=== PATIENT | female | born 1980 | race Caucasian/White ===

== ENCOUNTER 2022-04-07 08:58 | Outpatient (CLI) | payer BC, SELFPAY ==
[2022-04-07 12:17] LABS: Albumin* 4.8 g/dL (3.3-5.0)
[2022-04-07 12:18] LABS: Chloride* 102 mmol/L (96-114); Potassium* 4.7 mmol/L (3.6-5.1); Sodium* 137 mmol/L (135-149)
[2022-04-07 12:20] LABS: Aspartate Amino Transferase* 22 U/L (12-35); Bilirubin Total* 0.6 mg/dL (0.1-1.5); Carbon Dioxide* 28 mmol/L (20-32); Cholesterol* 223 mg/dL (90-199); Creatinine* 0.8 mg/dL (0.5-1.5); Estimated Glomerular Filt Rate 96 ml/min
[2022-04-07 12:21] LABS: Alanine Aminotransferase* 10 U/L (4-35); Alkaline Phosphatase* 60 U/L (40-150); Blood Urea Nitrogen* 13 mg/dL (5-24); Calcium* 9.4 mg/dL (8.4-10.6); Glucose* 96 mg/dL (60-115); HDL Cholesterol* 90 mg/dL (>=50); LDL Cholesterol Calculated 120 mg/dL (<100); Triglycerides* 64 mg/dL (40-149)
== END 2022-04-07 08:59 | disposition home or self-care (01) ==
PROVIDERS: Visit Provider Obstetrics & Gynecology
DX: Z01.419 Encounter for gynecological examination (general) (routine) without abnormal findings (principal); Z12.4 Encounter for screening for malignant neoplasm of cervix; Z13.6 Encounter for screening for cardiovascular disorders; Z13.29 Encounter for screening for other suspected endocrine disorder
CPT/HCPCS: 80053; 80061; 84443; 87624; 88175

== ENCOUNTER 2023-06-15 14:57 | Outpatient (CLI) | payer BC, SELFPAY ==
--- NOTE | 2023-06-15 15:00 | CRLHL7_ITS ---
For Patients: As a result of the Century Cures Act, medical imaging exams and procedure reports are released immediately into your electronic medical record. You may view this report before your referring provider. If you have questions, please contact your health care provider. BILATERAL SCREENING MAMMOGRAM WITH COMPUTER-AIDED DETECTION TECHNIQUE: CC and MLO views were obtained. These mammographic images have been obtained using full-field digital technique. These mammographic images were interpreted with the benefit of computer-aided detection. COMPARISON FILM: None. This is a baseline study. FINDINGS: The breasts are heterogeneously dense, which may obscure small masses. IMPRESSION: There is no radiographic evidence for malignancy. ASSESSMENT: BI-RADS Category 1: Negative RECOMMENDATION: Routine screening mammogram in 1 year. A lay language report of this examination will be provided to the patient. JULIO CESAR CLEMONS M.D. Diagnostic Radiologist [email or web address] Transcribed: 06/20/2023, 2:[address]/Dictated by: Julio Cesar Clemons MD @ 06/20/2023 9:08:00 AM (Electronically Signed)
== END 2023-06-15 14:58 | disposition home or self-care (01) ==
LOC: MAMMO 14:58
PROVIDERS: Visit Provider Obstetrics & Gynecology
DX: Z12.31 Encounter for screening mammogram for malignant neoplasm of breast (principal); R92.2 Inconclusive mammogram
CPT/HCPCS: 77067

== ENCOUNTER 2024-06-19 09:12 | Outpatient (CLI) | payer BC, SELFPAY ==
--- NOTE | 2024-06-19 09:15 | CRLHL7_ITS ---
For Patients: As a result of the Century Cures Act, medical imaging exams and procedure reports are released immediately into your electronic medical record. You may view this report before your referring provider. If you have questions, please contact your health care provider. BILATERAL SCREENING MAMMOGRAM WITH COMPUTER-AIDED DETECTION AND TOMOSYNTHESIS TECHNIQUE: CC and MLO views were obtained. These mammographic images have been obtained using full-field digital technique. These mammographic images were interpreted with the benefit of computer-aided detection. Breast Tomosynthesis was used in this interpretation. COMPARISON FILM: 06/15/23. FINDINGS: There are scattered areas of fibroglandular density. IMPRESSION: There is no radiographic evidence for malignancy. ASSESSMENT: BI-RADS Category 1: Negative RECOMMENDATION: Routine screening mammogram in 1 year. A lay language report of this examination will be provided to the patient. Julio Cesar Jones M.D. Diagnostic Radiologist [email or web address] SP/Dictated by: Julio Cesar Jones MD @ 06/19/2024 12:57:00 PM (Electronically Signed)
== END 2024-06-19 09:13 | disposition home or self-care (01) ==
LOC: MAMMO 09:13
PROVIDERS: Visit Provider Physician Assistant
DX: Z12.31 Encounter for screening mammogram for malignant neoplasm of breast (principal)
CPT/HCPCS: 77063; 77067

== ENCOUNTER 2024-12-13 09:35 | Outpatient (CLI) | payer BC, OTHER, SELFPAY ==
--- NOTE | 2024-12-13 09:45 | CRLHL7_ITS ---
For Patients: As a result of the Century Cures Act, medical imaging exams and procedure reports are released immediately into your electronic medical record. You may view this report before your referring provider. If you have questions, please contact your health care provider. DIGITAL DIAGNOSTIC LEFT MAMMOGRAM USING TOMOSYNTHESIS AND COMPUTER-AIDED DETECTION LEFT BREAST ULTRASOUND CLINICAL HISTORY: LEFT breast lump. COMPARISON: 06/19/2024. TECHNIQUE: Digital LEFT mammogram in two projections with computer-aided detection. Tomosynthesis was used in this interpretation. Real-time ultrasound imaging of LEFT breast with imaging documentation. BREAST COMPOSITION: There are scattered areas of fibroglandular density. FINDINGS: 3D CC/MLO LEFT breast mammogram images submitted. No suspicious masses or architectural distortion. No suspicious calcifications or adenopathy. Targeted LEFT breast ultrasound performed in the lateral chest wall region. In this location, there is a nonvascular isoechoic structure in the subcutaneous fat which measures 2.7 x 0.7 x 1.8 cm. IMPRESSION: Subcutaneous lipoma. No suspicious findings. RECOMMENDATIONS: Clinical follow-up and routine screening mammography. A lay language report of this examination will be provided to the patient. BI-RADS Category 2: Benign Dictated by Julio Cesar Jones MD @ 12/13/2024 11:22:06 AM jj/Dictated by: Julio Cesar Jones MD @ 12/13/2024 11:22:00 AM (Electronically Signed)
--- NOTE | 2024-12-13 10:15 | CRLHL7_ITS ---
For Patients: As a result of the Cures Act, medical imaging exams and procedure reports are released immediately into your electronic medical record. You may view this report before your referring provider. If you have questions, please contact your health care provider. SEE DIGITAL DIAGNOSTIC LEFT MAMMOGRAM PERFORMED SAME DAY CRL:ninfa ocasio/Dictated by: Julio Cesar Jones MD @ 12/13/2024 11:20:00 AM (Electronically Signed)
== END 2024-12-13 09:36 | disposition home or self-care (01) ==
LOC: MAMMO 09:36
PROVIDERS: Visit Provider Physician Assistant
DX: N63.20 Unspecified lump in the left breast, unspecified quadrant (principal); D17.39 Benign lipomatous neoplasm of skin and subcutaneous tissue of other sites; R22.2 Localized swelling, mass and lump, trunk
CPT/HCPCS: 76642; 77065; G0279

== ENCOUNTER 2025-01-07 13:15 | Outpatient (RCR) | payer BC, OTHER, SELFPAY ==
--- NOTE | 2024-10-28 14:55 | PT.OPEX ---
PT [facility] Eval PT [facility] Outpatient Eval Start: 10/28/24 09:50 Freq: Status: Active Protocol: Document 10/28/24 09:50 MRS (Rec: 10/28/24 14:52 MRS No Response) E-signed By Lillie Campbell DPT Physical Therapy Outpatient Evaluation Insurance Information Recert Due Date 01/27/25 Insurance Name [employer] Medical Diagnosis Acute right knee sprain Treating Diagnosis Pain in Knee Right M25.651 Referring MD Marzena Winn, MARKET RESEARCH ANALYST Subjective Preferred Name Deyanira Subjective Initial subjective: Deyanira started having knee pain in July but also reported having knee instability last summer but no pain during the summer. Deyanira took a break from running for a month and when she resumed in July she started having pain initially after 6 miles but now is having pain within 1-2 miles. Pain is located under the knee cap. No pain with walking. Deyanira prefers to trail run. 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 -Knee Flx:?145/150 -Knee Ext:?-2/-2 Strength LE Strength (R/L):? -Knee Ext: R: 4+/5, L: 5/5? -Knee Flex: R: 5/5, L: 5/5? -Hip Abd: R: 4+/5, L: 5/5? -Hip Add: R: 5/5, L: 5/5? -Hip Ext: R: 4+/5, L: 5/5? -Hip Flx: R: 5/5, L: 5/5? Ankle Strength (R/L):? -DF: R: 4+/5, L: 4/5? -PF (uni heel raise): R: 10 reps, L: 10 reps? -Inv: R: 5/5, L: 5/5? -Leilani: R: 5/5, L: 5/5? Other/Pertinent Objective Knee Ligamentous:? -Valgus 30:?positive for increased motion compared to left, no pain -Anterior Drawer:?negative -Posterior Drawer:?negtaive -Lachmans:?negative -Pivot Shift:? -Sag Sign:? Knee Meniscus:? -Greyson?s:?Positive for catch/click, no pain -Apley?s:?negative -Thesslay: negative PF Grind test: positive on R with superior compression Functional Test Performed & Score LEFS= 64/80 Assessment Assessment/Impression Patient is a 44-year-old female presenting to physical therapy for evaluation and treatment of acute right knee sprain. Patient presents with muscle weakness on right compared to left specifically of glutes, quads, and dorsiflexion and eversion as well as impaired flexibility in right hamstring and pain. Pt tested positive for 1 test with MCL and 1 test for meniscus involvement. These impairments are limiting the patient's ability to continue with her normal running activities. Patient appears motivated to participate in PT and presents with good prognosis to improve mobility, strength, proprioception and return to functional activities with skilled physical therapy intervention. ? Educated patient on proper form and muscle activation throughout session in order to optimize muscle function and proper body mechanics.? Primary Functional Limitations pain, weakness, flexibility Plan of Care Rehabilitation Potential Good Physical Therapy Goals STG's to be met in 2-4 weeks: 1.) Pt will report pain at worst at 7/10 or less with running. 2.) Pt will be independent and compliant with HEP LTG's to be met in 6-8 weeks: 1.) Pt will report pain at 4/ 10 or less at worst. 2.) Pt will be able to resume running 6-7 miles 3x per week without pain. 3.) Pt will demonstrate right glute and quad strength at 5/5 . Coordination/Communication With Referral Source Treatment Plan/Direct Interventions Gait Training,Neuromuscular Re -ed,Therapeutic Activities, Therapeutic Exercises Frequency/Duration 1-2x/week for 6-8 weeks Patient Will Be Discharged From Therapy Completion of LTG(s),Skills Plateau,Independent w/HEP, Independently Progressing Evaluation Billing Untimed Code Treatment Minutes 30 PT Eval No Charge No Complexity Low Certification Information Initial Certification Date 10/28/24 Ending Certification Date 01/27/25 Provider Signature Required Communication Only-No Signature Required
== END 2025-01-07 14:45 | disposition home or self-care (01) ==
PROVIDERS: Visit Provider Registered Nurse
DX: S83.91XD Sprain of unspecified site of right knee, subsequent encounter (principal); Z51.89 Encounter for other specified aftercare
CPT/HCPCS: 97110; 97161; 97530